=== PATIENT | male | born 1985 | race Caucasian/White ===

== ENCOUNTER → 2023-06-18 09:32 | Outpatient (BNVA) | payer SELFPAY | PROVIDERS: Family Provider Nurse Practitioner Family; PCP Nurse Practitioner; Visit Provider Nurse Practitioner Family | DX: J22 Unspecified acute lower respiratory infection (principal); R06.2 Wheezing | CPT/HCPCS: 71046 ==

== ENCOUNTER → 2023-10-04 08:37 | Outpatient (BNVA) | payer SELFPAY | PROVIDERS: Family Provider Nurse Practitioner Family; PCP Nurse Practitioner Family; Visit Provider Nurse Practitioner Family | DX: Z79.899 Other long term (current) drug therapy (principal); Z13.6 Encounter for screening for cardiovascular disorders | CPT/HCPCS: 80053; 80061; 81003; 83036; 84443; 85025 ==

== ENCOUNTER → 2024-05-20 14:38 | Outpatient (BNVA) | payer OTHER, SELFPAY | PROVIDERS: Family Provider Nurse Practitioner Family; PCP Nurse Practitioner Family; Visit Provider Nurse Practitioner Family | DX: J02.9 Acute pharyngitis, unspecified (principal) | CPT/HCPCS: 87880 ==

== ENCOUNTER → 2024-10-23 09:02 | Outpatient (BNVA) | payer OTHER, SELFPAY | PROVIDERS: Family Provider Nurse Practitioner Family; PCP Nurse Practitioner Family; Visit Provider Nurse Practitioner Family | DX: Z00.00 Encounter for general adult medical examination without abnormal findings (principal); Z13.6 Encounter for screening for cardiovascular disorders; Z79.899 Other long term (current) drug therapy | CPT/HCPCS: 80053; 80061; 81003; 83036; 84443; 85025 ==

== ENCOUNTER → 2024-11-17 08:50 | Outpatient (BNVA) | payer OTHER, SELFPAY | PROVIDERS: Family Provider Nurse Practitioner Family; PCP Nurse Practitioner Family; Visit Provider Nurse Practitioner Family | DX: M25.40 Effusion, unspecified joint (principal); Z82.61 Family history of arthritis | CPT/HCPCS: 82570; 84156; 85651; 86038; 86140; 86200; 86431 ==